=== PATIENT | male | born 1955 | race African-American/Black ===

== ENCOUNTER 2017-02-18 08:11 | Outpatient (CLI) | payer OTHER ==
--- NOTE | 2017-02-18 09:51 | Magnetic Resonance Report ---
MRI of the cervical spine without contrast. History: Neck pain. Procedure: Sagittal T1-weighted, T2-weighted, inversion recovery images, and axial T2 weighted and proton density images were used in the study. Findings: The C2-3 and C3-4 levels are unremarkable. At C4-5, there is moderate narrowing of the disc space. There are mild posterior hypertrophic changes/spondylosis with minimal effacement of anterior subarachnoid space. There is no evidence of spinal stenosis. At C5-6, there is moderately severe narrowing of the disc space with mild diffuse posterior hypertrophic changes, slightly more pronounced on the left with minimal foraminal stenosis. There is no central stenosis. The C6-7 and C7-T1 levels are normal. Alignment of the cervical spine is normal. The cervical medullary junction is normal. No significant bony findings are seen. Impression: Mild to moderate spondylosis/proliferative changes seen at C4-5 and C5-6 with no central canal stenosis. Minimal foraminal stenosis is seen at C5-6 on the left.
== END 2017-02-18 08:12 | disposition home or self-care (01) ==
LOC: MRI 08:11
PROVIDERS: ATTEND Orthopaedic Surgery
DX: M48.02 Spinal stenosis, cervical region (principal); M47.812 Spondylosis without myelopathy or radiculopathy, cervical region
CPT/HCPCS: 72141

== ENCOUNTER 2018-05-17 08:20 | Outpatient (CLI) | payer OTHER ==
--- NOTE | 2018-05-17 15:00 | Fluoroscopy Report ---
MODIFIED BARIUM SWALLOW History: dysphagia. Findings: Video radiography was provided by the radiologist for speech therapy to assess the swallowing mechanism. 1 fluoroscopic image was captured. Impression: Successful modified barium swallow.
== END 2018-05-17 08:21 | disposition home or self-care (01) ==
LOC: PT 08:20
DX: R13.10 Dysphagia, unspecified (principal)
CPT/HCPCS: 74230